=== PATIENT | male | born 1955 | race Caucasian/White ===

== ENCOUNTER 2022-12-19 06:13 | Inpatient (IN) | payer OTHER ==
[2022-12-02 12:00] VITALS: BMI 36.5
[2022-12-19] MEDS ORDERED: CEFAZOLIN 2 GM in DEXTROSE 5%-WATER - 50 ML IVPB ONE (07:00)
[2022-12-19] MEDS ORDERED: VANCOMYCIN 1,000 MG VIAL (RESTRICTED TO ID ONLY) ONE ×2 (07:07→09:00)
[2022-12-19] MEDS ORDERED: MIDAZOLAM HCL 2 MG/2 ML SINGLE DOSE VIAL ONE ×2 (07:28→08:56)
[2022-12-19] MEDS ORDERED: FENTANYL CITRATE/PF 50 MCG/ML VIAL ONE ×3 (07:28→11:58)
[2022-12-19] MEDS ORDERED: BUPIVACAINE LIPOSOME/PF (EXPAREL) 266 MG/20 ML VIAL ONE (07:28)
[2022-12-19] MEDS ORDERED: BUPIVACAINE HCL/PF 0.5% (5MG/ML) 10 ML VIAL ONE (07:29)
[2022-12-19] MEDS ORDERED: VANCOMYCIN 1,000 MG in DEXTROSE 5%-WATER - 250 ML IVPB ONE (07:37)
[2022-12-19] MEDS ORDERED: TRANEXAMIC ACID 1000 MG/10 ML VIAL IVPUSH ONE (08:00)
[2022-12-19] MEDS ORDERED: PROPOFOL 20 ML ONE (08:26)
[2022-12-19] MEDS ORDERED: ROCURONIUM BROMIDE 50 MG/5 ML SYRINGE ONE (08:26)
[2022-12-19] MEDS ORDERED: DEXAMETHASONE SOD PHOSPHATE 4 MG/1 ML VIAL ONE (08:41)
[2022-12-19] MEDS ORDERED: ceFAZolin SODIUM 1 GM VIAL ONE (08:41)
[2022-12-19] MEDS ORDERED: ONDANSETRON 4 MG/2 ML VIAL ONE ×2 (08:41→10:36)
[2022-12-19] MEDS ORDERED: BUPIVICAINE 0.25%/MORPH PF/KETOROLAC - 51ML DISP.SYRINGE IA ONE ×2 (09:49→10:48)
[2022-12-19] MEDS ORDERED: MAGNESIUM HYDROX 2400MG/30ML ORAL SUSPENSION 30 ML CUP PO PRN (11:28)
[2022-12-19] MEDS ORDERED: oxyCODONE HCL 5 MG TABLET PO PRN ×3 (11:28)
[2022-12-19] MEDS ORDERED: ACETAMINOPHEN 1000 MG/100 ML BAG IVPB ONE (11:28)
[2022-12-19] MEDS ORDERED: ONDANSETRON 4 MG/2 ML VIAL IVPUSH PRN ×2 (11:28)
[2022-12-19] MEDS ORDERED: MAG HYDROX/AL HYDROX/SIMETH 30 ML UNIT-DOSE CUP PO PRN (11:28)
[2022-12-19] MEDS: LACTATED RINGERS SOLUTION 1,000 ML IV SCH (13:37)
[2022-12-19] MEDS: CEFAZOLIN SODIUM 2 GM in DEXTROSE 5%-WATER 100 ML IVPB SCH ×2 (16:34→23:35)
[2022-12-19] MEDS: ACETAMINOPHEN 1000 MG/100 ML BAG IVPB SCH (21:25)
[2022-12-19] MEDS: ASPIRIN 81 MG CHEWABLE TABLETS PO SCH (21:26)
[2022-12-19] MEDS: oxyCODONE HCL 10 MG SUSTAINED ACTING TABLET PO SCH (21:26)
[2022-12-19] MEDS: SENNOSIDES/DOCUSATE COMBO (SENNA PLUS) TABLET (UD) PO SCH (21:27)
[2022-12-19] MEDS ORDERED: VANCOMYCIN/WATER FOR INJ (PEG) 1 GM/200 ML BAG IVPB ONE (21:30)
[2022-12-19] MEDS ORDERED: ROSUVASTATIN CA 20 MG TABLET PO SCH (22:00)
[2022-12-20] MEDS: ACETAMINOPHEN 1000 MG/100 ML BAG IVPB SCH ×2 (04:58→12:21)
[2022-12-20 07:57] LABS: CALCIUM 7.9 mg/dl (8.5-10.1); CREATININE 0.9 mg/dl (0.6-1.3); POTASSIUM 3.8 mmol/L (3.5-5.1)
[2022-12-20 08:06] LABS: HEMATOCRIT 35.6 % (35.4-49); HEMOGLOBIN 12.1 G/dL (11.7-16.9); MCH 29.7 pg (25.7-33.7); MCHC 34.1 g/dl (32.0-35.9); MEAN CELL VOLUME 87.1 fl (80-96); MEAN PLT VOLUME 6.9 fl (7.5-11.1); PLATELET COUNT 142.4 10^3/uL (134-434); RBC 4.09 10^6/uL (4.00-5.60)
[2022-12-20] MEDS ORDERED: amLODIPine BESYLATE 10 MG TABLET (FP) PO SCH (10:00)
[2022-12-20] MEDS ORDERED: ATENOLOL 50 MG TABLET (FP) PO SCH (10:00)
[2022-12-20] MEDS ORDERED: MULTIVITAMINS (DAILY MVI) TABLET (FP) PO SCH (10:00)
[2022-12-20] MEDS ORDERED: PANTOPRAZOLE 40 MG TABLET PO SCH (10:00)
[2022-12-20] MEDS ORDERED: LOSARTAN POTASSIUM 50 MG TABLET PO SCH (10:00)
[2022-12-20] MEDS: ASPIRIN 81 MG CHEWABLE TABLETS PO SCH (10:53)
[2022-12-20] MEDS: SENNOSIDES/DOCUSATE COMBO (SENNA PLUS) TABLET (UD) PO SCH (10:53)
[2022-12-20] MEDS: oxyCODONE HCL 10 MG SUSTAINED ACTING TABLET PO SCH (10:54)
[2022-12-20] MEDS: CEFAZOLIN SODIUM 2 GM in DEXTROSE 5%-WATER 100 ML IVPB SCH (10:57)
[2022-12-20 12:26] VITALS: BP 111/60; PULSE 52; RESP 18; TEMP 98
[2022-12-20] MEDS: LACTATED RINGERS SOLUTION 1,000 ML IV SCH (16:21)
== END 2022-12-20 18:00 | disposition home or self-care (01) | DRG 470 ==
LOC: FM/S 06:13
PROVIDERS: ADMIT Internal Medicine; ATTEND Internal Medicine
PROC: 8E0Y0CZ Robotic Assisted Procedure of Lower Extremity, Open Approach (ICD-10-PCS; 2022-12-19)
PROC: 0SRC0JA Replacement of Right Knee Joint with Synthetic Substitute, Uncemented, Open Approach (ICD-10-PCS; principal; 2022-12-19 09:01)
DX: M17.11 Unilateral primary osteoarthritis, right knee (principal); I10 Essential (primary) hypertension; E78.5 Hyperlipidemia, unspecified
CPT/HCPCS: 36415; 73560-TC-RT-FY; 80048; 85027; 88305-TC; 88311-TC; 94760; 97116-GP; 97162-GP; C1776

== ENCOUNTER 2023-03-03 06:05 | Day surgery (SDC) | payer OTHER ==
[2023-03-01 13:24] VITALS: BMI 36.5
[2023-03-03] MEDS ORDERED: CEFAZOLIN 2 GM in DEXTROSE 5%-WATER - 50 ML IVPB ONE (07:06)
[2023-03-03] MEDS ORDERED: VANCOMYCIN 1,000 MG VIAL (RESTRICTED TO ID ONLY) ONE ×2 (07:32→07:54)
[2023-03-03] MEDS ORDERED: BUPIVACAINE HCL/PF 0.5% (5MG/ML) 10 ML VIAL ONE ×2 (07:40→07:56)
[2023-03-03] MEDS ORDERED: MIDAZOLAM HCL 2 MG/2 ML SINGLE DOSE VIAL ONE ×2 (07:40→08:44)
[2023-03-03] MEDS ORDERED: BUPIVACAINE LIPOSOME/PF (EXPAREL) 266 MG/20 ML VIAL ONE (07:40)
[2023-03-03] MEDS ORDERED: PROPOFOL 40 ML ONE (07:54)
[2023-03-03] MEDS ORDERED: ceFAZolin SODIUM 1 GM VIAL ONE (07:54)
[2023-03-03] MEDS ORDERED: ACETAMINOPHEN INJECTION 100 ML IVPB ONE (07:56)
[2023-03-03] MEDS ORDERED: TRANEXAMIC ACID 1000 MG/10 ML VIAL IVPUSH ONE (08:00)
[2023-03-03] MEDS ORDERED: DEXAMETHASONE SOD PHOSPHATE 4 MG/1 ML VIAL ONE (08:53)
[2023-03-03] MEDS ORDERED: BUPIVICAINE 0.25%/MORPH PF/KETOROLAC - 51ML DISP.SYRINGE IA ONE ×2 (08:53→10:13)
[2023-03-03] MEDS ORDERED: ONDANSETRON 4 MG/2 ML VIAL ONE (08:53)
[2023-03-03] MEDS ORDERED: TRANEXAMIC ACID 1000 MG/10 ML VIAL ONE (09:54)
[2023-03-03] MEDS ORDERED: VANCOMYCIN 1,000 MG VIAL (RESTRICTED TO ID ONLY) IVPB ONE (10:00)
[2023-03-03] MEDS ORDERED: PROPOFOL 20 ML ONE (10:23)
[2023-03-03] MEDS ORDERED: ONDANSETRON 4 MG/2 ML VIAL IVPUSH PRN (10:56)
[2023-03-03] MEDS ORDERED: MAG HYDROX/AL HYDROX/SIMETH 30 ML UNIT-DOSE CUP PO PRN (10:56)
[2023-03-03] MEDS ORDERED: MAGNESIUM HYDROX 2400MG/30ML ORAL SUSPENSION 30 ML CUP PO PRN (10:56)
[2023-03-03] MEDS ORDERED: oxyCODONE HCL 5 MG TABLET PO PRN (11:02)
[2023-03-03] MEDS: LACTATED RINGERS SOLUTION 1,000 ML IV SCH (13:03)
[2023-03-03] MEDS: oxyCODONE HCL 5 MG TABLET PO PRN (15:39)
[2023-03-03] MEDS: CEFAZOLIN SODIUM 2 GM in DEXTROSE 5%-WATER 100 ML IVPB SCH ×2 (15:39→23:57)
[2023-03-03] MEDS: ACETAMINOPHEN 1000 MG/100 ML BAG IVPB SCH (17:01)
[2023-03-03] MEDS ORDERED: ROSUVASTATIN CA 20 MG TABLET PO SCH (22:00)
[2023-03-03] MEDS: SENNOSIDES/DOCUSATE COMBO (SENNA PLUS) TABLET (UD) PO SCH (22:12)
[2023-03-04] MEDS: ACETAMINOPHEN 1000 MG/100 ML BAG IVPB SCH ×2 (00:49→10:11)
[2023-03-04 01:50] VITALS: RESP 18
[2023-03-04] MEDS: oxyCODONE HCL 5 MG TABLET PO PRN (06:12)
[2023-03-04 07:57] LABS: HEMATOCRIT 35.1 % (35.4-49); HEMOGLOBIN 12.1 GM/dL (11.7-16.9); MCH 28.5 pg (25.7-33.7); MCHC 34.3 g/dl (32.0-35.9); MEAN CELL VOLUME 82.9 fl (80-96); MEAN PLT VOLUME 7.5 fl (7.5-11.1); PLATELET COUNT 169 10^3/uL (134-434); RBC 4.24 M/mm3 (4.00-5.60); RDW 14.3 % (11.9-15.9); WHITE BLOOD COUNT 7.8 K/mm3 (4.0-10.0)
[2023-03-04 09:10] LABS: BLOOD UREA NITROGEN 23.7 mg/dL (7-18); CALCIUM 8.1 mg/dL (8.5-10.1); CREATININE 1.1 mg/dL (0.55-1.3); POTASSIUM 4.2 mmol/L (3.5-5.1)
[2023-03-04] MEDS ORDERED: amLODIPine BESYLATE 5 MG TABLET (FP) PO SCH (10:00)
[2023-03-04] MEDS ORDERED: MULTIVITAMINS (DAILY MVI) TABLET (FP) PO SCH (10:00)
[2023-03-04] MEDS ORDERED: ATENOLOL 50 MG TABLET (FP) PO SCH (10:00)
[2023-03-04] MEDS ORDERED: LOSARTAN POTASSIUM 50 MG TABLET PO SCH (10:00)
[2023-03-04] MEDS ORDERED: PANTOPRAZOLE 40 MG TABLET PO SCH (10:00)
[2023-03-04] MEDS ORDERED: ASPIRIN COATED 81 MG TABLET.EC PO SCH (10:00)
[2023-03-04] MEDS: CEFAZOLIN SODIUM 2 GM in DEXTROSE 5%-WATER 100 ML IVPB SCH (10:10)
[2023-03-04] MEDS: SENNOSIDES/DOCUSATE COMBO (SENNA PLUS) TABLET (UD) PO SCH (10:11)
[2023-03-04] MEDS: LACTATED RINGERS SOLUTION 1,000 ML IV SCH (13:43)
[2023-03-04 14:53] VITALS: BP 131/73; PULSE 70; TEMP 97.9
== END 2023-03-04 15:31 | disposition home or self-care (01) ==
LOC: FASUSAT 06:05 → SUATTDRO 06:05 → FM/S 12:40 → FASUSAT 03-04 15:31
PROVIDERS: ATTEND Internal Medicine
PROC: 8E0Y0CZ Robotic Assisted Procedure of Lower Extremity, Open Approach (ICD-10-PCS; 2023-03-03)
PROC: 0SRD0JA Replacement of Left Knee Joint with Synthetic Substitute, Uncemented, Open Approach (ICD-10-PCS; principal; 2023-03-03 08:37)
DX: M17.12 Unilateral primary osteoarthritis, left knee (principal)
CPT/HCPCS: 20985; 27447; C1776; S2900; 36415; 73560-TC-LT-FY; 80048; 85027; 88305-TC; 88311-TC; 94760; 97010-GP; 97116-GP; 97162-GP